=== PATIENT | male | born 1960 | race African-American/Black ===

== ENCOUNTER 2025-04-26 13:19 | Outpatient (AMB) | payer OTHER, SELFPAY ==
--- NOTE | 2025-04-26 13:26 | MHC.OFFVIS ---
Vital Signs 04/26/25 13:31 Height 5 ft 8 in Weight 211 lb BMI 32.1 BP 124/78 Blood Pressure Location Lt brachial Position Sitting Respiration 18 Pulse 78 Pulse Source Pulse Oximeter Pulse Oximetry (%) 98 Oxygen Delivery Method Room Air Intake Visit Reasons: Lumbar radiculopathy Allergies pravastatin Allergy (Unknown, Verified 04/26/25 13:31) myalgia cyclobenzaprine Adverse Reaction (Unknown, Verified 04/26/25 13:31) mental status change rosuvastatin Adverse Reaction (Unknown, Verified 04/26/25 13:31) myalgia simvastatin Adverse Reaction (Verified 04/26/25 13:31) myalgia HPI Comments Details: Dante is very pleasant 65 years old gentleman who presents in my office with complains on pain in the lower back starting in the buttock and radiating all the way down to the left lower extremities ending into the 3 middle toes. He reports that this pain started in March on of this year. He reports that this pain happened when he was lifting heavy load. He went for [facility] and received MRI. The results of the MRI dictated as below. He reports that flexing forward and standing aggravate his pain more. Because of his pain he can not sleep normally can not do activities of daily living he is able to take care of himself but he can not function normally. He is on permanent disability. Weather changes in movements aggravate his pain. Heat applications and oral medications make his pain better. His pain is most severe during the daytime and little hurts him when he is sleeping. He had physical therapy with [facility] he stated that he had it 2 years ago for the similar pain he reported minimal help from physical therapy. He never had any injections. Review of Systems Const All systems reviewed & are unremarkable except as noted in HPI and below ENT Reports Normal hearing present Neuro Reports Normal hearing present, Denies Abnormal speech present, Denies confusion and Denies Sensory deficit (Neuro) Psych Denies confusion Physical Exam Vital Signs: Last Vital Signs Pulse 78 04/26/25 13:31 Resp 18 04/26/25 13:31 BP 124/78 04/26/25 13:31 Pulse Ox 98 04/26/25 13:31 Oxygen Delivery Method Room Air 04/26/25 13:31 BMI result Body Mass Index 32.1 Const General: no acute distress; No confusion Nutritional Appearance: well nourished and overweight Orientation/consciousness: patient oriented x3 and No confusion Eyes General: appearance normal, both eyes and all related structures Pupils: Equal, round and reactive pupils present EOM: EOMs intact bilaterally Neck Neck: Yes full ROM Chest Chest palpation & inspection: normal inspection of the chest Resp Effort & Inspection: normal respiratory effort, able to speak in complete sentences, normal respiratory pattern, no audible wheezes and no cough Cardio Jugular venous distension: no JVD GI Inspection: Yes normal to inspection Back/Spine/Pelvis Other: Able to stand on bilateral tiptoes in bilateral heels without difficulty. Able to walk only using the walker for ambulation. Reports that using walker helps his pain a little bit. SLR is positive on the left. Lasegue test is positive on the left. However also Dilshad test is positive on the left and yeoman's test is positive on the left as well as pelvic distraction test but not pelvic compression test. Neuro General: patient oriented x3, gait normal and No confusion Cranial nerves: Yes CN's II-XII intact bilaterally, Yes Equal, round and reactive pupils present, Yes Normal hearing present and Yes Ability to bilaterally elevate shoulders present Speech: No Abnormal speech present Gait exam (Neuro): Normal gait present Motor exam (neuro): 5/5 motor strength present throughout Sensory Exam: No Sensory deficit (Neuro) Extrem General: No pedal edema Psych Speech and movement: Normal speech and movement present Affect: normal affect Attitude: cooperative Thought process: Normal thought process present Thought content: Normal thought content present Insight: Good insight present (Psych) Judgement: Good judgement present (Psych) Results Reviewed Results Reviewed: MRI lumbar spine 12/08/2024 Findings multiple images are degraded by patient motion. This study assumes 5 [id number] lumbar type vertebral bodies. Alignment vertebra marrow and discs. There is mild leftward curvature of the lumbar spine. Mild degenerative anterolisthesis of L3 on L4 and slight retrolisthesis of L4 on L5 unchanged. The lumbar vertebral bodies are normal in height. 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 Moderate loss of height L2-L3 L4. Marginal osteophytes are present anteriorly at L2-L3 and L3-L4. Facet arthrosis of the lumbar spine are present at multiple levels. Conus: The conus is normal in signal and contour with normal level of termination at L1. Paraspinal tissues bilateral renal cysts are present measuring 278 mm on the right. No specific follow-up is recommended. Detailed findings by level. L1-L2: Nonsignificant canal stenosis or neural foraminal narrowing. L2-L3: Mild concentric disc bulge with left extraforaminal disc protrusion. Minimal left central canal narrowing. No right and mild left foraminal narrowing. Crowding of the extraforaminal left L2 nerve roots. L3-L4: Mild degenerative anterolisthesis, concentric disc bulge, facet arthrosis, ligamentum flavum involving. Mild central canal stenosis. Mild subarticular recess narrowing. Yezo-[id number]-jwlilyhq right and mild left foraminal narrowing. L4-5 mild broad-based posterior disc bulge no significant central canal narrowing. Lcxj-tf-tavixmpt foraminal narrowing. L5-S1: Concentric disc bulge, facet arthrosis, and ligamentum flavum infolding. Mild left central canal and left subarticular recess narrowing. Crowding of the left S1 nerve roots. Mild right and moderate left foraminal narrowing with crowding of the exiting left L5 nerve roots. Assessment & Plan Assessment & Plan (1) Chronic left sacroiliac joint pain: Code(s): M53.3 - Sacrococcygeal disorders, not elsewhere classified; G89.29 - Other chronic pain Category: Medical (2) Sacroiliitis: Code(s): M46.1 - Sacroiliitis, not elsewhere classified Category: Medical (3) Disc degeneration, lumbar: Code(s): M51.369 - Other intervertebral disc degeneration, lumbar region without mention of lumbar back pain or lower extremity pain Category: Medical (4) Facet arthropathy, lumbar: Code(s): M47.816 - Spondylosis without myelopathy or radiculopathy, lumbar region Category: Medical (5) Radiculopathy due to disorder of intervertebral disc of lumbosacral spine: Code(s): M54.17 - Radiculopathy, lumbosacral region Category: Medical Plan My differential diagnosis for this patient will be between the left sacroiliac joint pain and left L5-S1 foraminal radiculopathy. I offered this patient transforaminal epidural steroid injection L5-S1 without any steroids not to affect any pathology in sacroiliac joint with systemic steroid administration. If this transforaminal epidural steroid injection will be successful to alleviate this patient's pain I will be glad to continue this injections with steroids in the future. However if this will be short-lived pain or no pain relief I will consider diagnostic sacroiliac joint injection in the future. I also requested the patient to bring me the MRI disc from [facility] so I can assess the changes on the MRI by myself. Patient Instructions: I here by testify that I spent 45 minutes in conversation with this patient as well as evaluating his prior records and prior diagnostic studies as well as planning his care and organizing this note. Coding Level of Care Code New Pt Level 4 (06261) Diagnoses Chronic left sacroiliac joint pain M53.3; G89.29 Sacroiliitis M46.1 Disc degeneration, lumbar M51.369 Facet arthropathy, lumbar M47.816 Radiculopathy due to disorder of intervertebral disc of lumbosacral spine M54.17
[2025-04-26 13:31] VITALS: BP 124/78; PULSE 78; RESP 18; O2SAT 98; BMI 32.1
== END 2025-04-26 13:55 | disposition home or self-care (01) ==
LOC: HO.PMC 13:19
PROVIDERS: PCP Family Medicine; Visit Provider Anesthesiology
DX: M53.3 Sacrococcygeal disorders, not elsewhere classified (principal); G89.29 Other chronic pain; M46.1 Sacroiliitis, not elsewhere classified; M51.369 Other intervertebral disc degeneration, lumbar region without mention of lumbar back pain or lower extremity pain; M47.816 Spondylosis without myelopathy or radiculopathy, lumbar region; M54.17 Radiculopathy, lumbosacral region
CPT/HCPCS: 99204

== ENCOUNTER → 2025-04-26 13:19 | Outpatient (BNVA) | payer OTHER, SELFPAY | PROVIDERS: PCP Family Medicine; Visit Provider Anesthesiology | DX: M53.3 Sacrococcygeal disorders, not elsewhere classified (principal); M46.1 Sacroiliitis, not elsewhere classified; M51.369 Other intervertebral disc degeneration, lumbar region without mention of lumbar back pain or lower extremity pain; M47.816 Spondylosis without myelopathy or radiculopathy, lumbar region; M54.17 Radiculopathy, lumbosacral region; G89.29 Other chronic pain | CPT/HCPCS: 99202 ==